=== PATIENT | male | born 1960 | race Caucasian/White ===

== ENCOUNTER 2023-04-02 05:14 | Inpatient (IN) | payer OTHER ==
[2023-03-28 15:15] LABS: BASOPHILS % (AUTO) 0.3 % (0-1); EOSINOPHILS # (AUTO) 0.2 X10'3 (0-0.9); EOSINOPHILS % (AUTO) 2.3 % (0-6); LYMPHOCYTES % (AUTO) 11.2 % (21-51); MEAN CORPUSCULAR HEMOGLOBIN 29.2 PG (27.0-31.0); MEAN CORPUSCULAR HGB CONC 33.9 g/dL (33.0-36.5); MEAN CORPUSCULAR VOLUME 86.2 FL (78-98); MEAN PLATELET VOLUME 7.6 FL (7.4-10.4); MONOCYTES # (AUTO) 0.8 X10'3 (0-0.9); MONOCYTES % (AUTO) 9.6 % (2-12); NEUTROPHILS # (AUTO) 6.6 X10'3 (1.8-7.7); NEUTROPHILS % (AUTO) 76.6 % (42-75); PRE OP HEMATOCRIT 45.7 % (42.0-52.0); PRE OP HEMOGLOBIN 15.5 g/dL (14.0-17.9); PRE OP PLATELET COUNT 236 X10'3 (140-440); PRE OP WHITE BLOOD COUNT 8.6 10'3 (4.8-10.8); RED CELL DISTRIBUTION WIDTH 15.2 % (11.5-14.5)
[2023-03-28 15:31] LABS: ALBUMIN 3.7 G/DL (3.4-5.0); ALBUMIN/GLOBULIN RATIO 0.9 (1.1-1.5); ALKALINE PHOSPHATASE 80 IU/L (46-116); BLOOD UREA NITROGEN 18 MG/DL (7-18); BUN/CREATININE RATIO 15.5 (10.0-20.0); CALCIUM 9.5 MG/DL (8.5-10.1); CHLORIDE 101 MMOL/L (99-107); CREATININE 1.16 MG/DL (0.60-1.10); PRE OP ALT 32 U/L (30-65); PRE OP ANION GAP 10 (8-16); PRE OP AST 22 U/L (10-37); PRE OP GLUCOSE 182 MG/DL (70-104); PRE OP SODIUM 137 MMOL/L (135-145); TOTAL CARBON DIOXIDE 25.6 MMOL/L (24-32); TOTAL PROTEIN 7.6 G/DL (6.4-8.2); eGFR 63 ML/MIN
[2023-03-28 15:50] LABS: PRE OP POTASSIUM 3.3 MMOL/L (3.4-5.1)
[2023-04-02] VITALS (32 sets, daily range): BP systolic 11–151; BP diastolic 53–97; PULSE 60–78; RESP 10–19; TEMP 97.7–98.6; O2SAT 90–98
[~2023-04-02] VITALS: Ht 175.3 cm; Wt 131.0 kg
[~2023-04-02 05:14] MED LIST: ALOG25TA PO; ASPI-529 PO; ATOR-2 PO; CARV-50 PO; DULO-31 PO; EMPA25TA PO; FURO-150 PO; HYDR25TA4 PO; LISI-642 PO; PHEN1CPM PO; ringers solution, lacted 1,000 ML IV SCH
[2023-04-02] MEDS ORDERED: DOCUMENT DATE & TIME OF BETA-BLOCKER PO ONE (05:30)
[2023-04-02] MEDS ORDERED: vancomycin 1,500 MG in NS 300ml IV soln IV ONE (05:30)
[2023-04-02] MEDS ORDERED: ceFAZolin inj. 3,000 MG in normal saline 100ml IV soln 100 ML IV ONE (05:30)
[2023-04-02] MEDS ORDERED: famotidine 20mg tablet PO ONE (05:30)
[2023-04-02] MEDS ORDERED: tranexamic acid 650mg tablet PO ONE (05:30)
--- NOTE | 2023-04-02 06:25 | NUR ---
PATIENT WATCHED VIDEO, PULSES MARKED, NO OINTMENT ORDERED, CSM INTACT. REQUESTED EARLY ROOM FOR PATIENT AFTER SURGERY BUT WAS TOLD ROOMS ARE FULL ALREADY.
[2023-04-02] MEDS ORDERED: ROPIVAcaine 0.5% (5mg/ml) 30ml vial ONE ×3 (06:46→08:24)
[2023-04-02] MEDS ORDERED: fentaNYL/PF 50MCG/1 ML 2ML syringe ONE (07:17)
[2023-04-02] MEDS ORDERED: MIDAZolam 1mg/ml 10ml vial ONE (07:17)
[2023-04-02] MEDS ORDERED: propofol inj 20 ML IV ONE ×2 (07:21)
[2023-04-02] MEDS ORDERED: fentaNYL/PF 50MCG/1 ML 2ML syringe IV PRN ×2 (08:10)
[2023-04-02] MEDS ORDERED: labetalol 20mg/4ml (5mg/ml) syringe IV PRN (08:10)
[2023-04-02] MEDS ORDERED: morphine 4 MG/ML inj SYRINge IV PRN (08:10)
[2023-04-02] MEDS ORDERED: ringers solution, lacted 1,000 ML IV SCH (08:10)
[2023-04-02] MEDS ORDERED: ondansetron/PF 4mg/2ml inj IV PRN ×2 (08:10→09:25)
[2023-04-02] MEDS ORDERED: morphine 2 MG/ML inj. syringe IV PRN (08:10)
[2023-04-02] MEDS ORDERED: hydrALAZINE 20mg/ml inj. IV PRN (08:10)
[2023-04-02] MEDS ORDERED: dexmedetomidine 200mcg/2ml inj. IV ONE (08:20)
[2023-04-02] MEDS ORDERED: tetracaine 1% (10mg/ml) pres. free inj. ONE (08:20)
[2023-04-02] MEDS ORDERED: ePHEDrine 50MG/ML INJ. ONE (08:30)
[2023-04-02] MEDS ORDERED: oxyCODONE IR 5mg (immed. release) tablet PO PRN ×2 (09:25)
[2023-04-02] MEDS ORDERED: acetaminophen 325mg tablet PO PRN (09:25)
[2023-04-02] MEDS ORDERED: HYDROmorphone inj. 0.5 MG/0.5 ML DISP.SYRIN IV PRN (09:25)
[2023-04-02] MEDS ORDERED: bisacodyl 10mg suppository rectal RC PRN (09:25)
[2023-04-02] MEDS ORDERED: HYDROmorphone 1 mg/ml syringe IV PRN (09:25)
[2023-04-02] MEDS ORDERED: diphenhydrAMINE 25mg capsule PO PRN ×2 (09:25)
[2023-04-02] MEDS ORDERED: naloxone 0.4 mg/ml inj IV PRN (09:25)
[2023-04-02] MEDS ORDERED: magnesium hydroxide 30ml (MOM) UD suspension PO PRN (09:25)
--- NOTE | 2023-04-02 09:26 | NUR ---
Received from OR via hospital bed to RR 7, accompanied by Anesthesiologist Dr Burgos and report given by Anesthesiologist. PATIENT A&OX4, DENIES PAIN, V/S WNL, SCD ON , PIV 20G L wirst, DRESSING knee WRAP TO RIGHT SIDE CDI AND COLD POWDER PACK applied. bilateral pedal pulses palpable. Will continue to assess
--- NOTE | 2023-04-02 10:26 | NUR ---
PT IS A/OX4 AND DOES NOT C/O PAIN OR NAUSEA. STILL NOT ABLE TO FEEL BILAT LE
--- NOTE | 2023-04-02 12:05 | NUR ---
RECEIVED PT AND REPORT FROM CAREER BASED INTERVENTION COORDINATOR, RUIZ, PT NOW STARTING TO MOVE LEGS, DENIES PAIN OR NAUSEA, WAITING FOR PT'S LUNCH TRAY TO ARRIVE. PT'S AT BEDSIDE. WILL CONTINUE TO MONITOR.
--- NOTE | 2023-04-02 12:10 | NUR ---
PATIENT TRANSFERRED TO [facility] ROOM 244. GAVE REPORT TO DANIEL RAYMUNDO TO RESUME CARE OF PATIENT. NO C/O PAIN OR NAUSEA. RIGHT TKA DRESSING, CDI. WRAP AND POWDER PACK IN PLACE. BILATERAL PEDAL PULSES PALPABLE AND PATIENT IS ABLE TO MOVE ALL 4 EXTREMITIES. STILL DECREASED SENSATION BLE.
--- NOTE | 2023-04-02 14:30 | NUR ---
GOT REPORT FROM DANIEL RAYMUNDO. PATIENT IS MOVED BACK TO RR 8, STILL PENDING ORTHO ROOM FOR ADMIT. PT PRESENTS ON RA, VSS. PT RECEIVED PAIN MEDS AT 1340 AND STILL C/O PAIN 4/10 TO RIGHT LEG AND WOULD LIKE PAIN MEDS BUT REFUSES MORPHINE. HE IS SITTING U PIN BED AND THERE ARE NO S/S OF DISTRESS. PT IS ABLE TO MOVE HIS TOES AND IS STARTING REGAIN FEELING. WILL CONTINUE TO ASSESS.
[2023-04-02] MEDS: acetaminophen 325mg tablet PO SCH ×2 (14:57→21:37)
--- NOTE | 2023-04-02 15:09 | NUR ---
PATIENT DANGLING AT THE EDGE OF THE BED. WILL CONTINUE TO ASSESS
[2023-04-02] MEDS: ceFAZolin/D5W- 1GM premix 50 ML IV SCH (15:22)
[2023-04-02] MEDS: potassium cl 20mEq in 1/2 NS 1,000 ML IV SCH (15:22)
[2023-04-02] MEDS: HYDROcodone/acetaminophen 10/325mg tab PO PRN ×2 (16:36→21:59)
--- NOTE | 2023-04-02 17:46 | NUR ---
PATIENT STABLE FOR TRANSFER PER MD ORDERS. REPORT GIVEN TO NURSE CUNNINGHAM, ALL QUESTIONS, COMMENTS, AND CONCERNS WERE ANSWERED AT THIS TIME. ALL PERSONAL BELONGINGS WERE SENT UP WITH PATIENT AND PATIENT IS AWARE OF ROOM NUMBER. PATIENT HOOKED UP TO POST OP VITALS AND CALL LIGHT WITHIN REACH, BLL. RIGHT LEG ELEVATED WITH ICE APPLIED. PRIMARY NURSE AWARE OF TRANSFER - CARE HAS BEEN TRANSFERRED TO NURSE COON.
--- NOTE | 2023-04-02 18:30 | NUR ---
Patient in room ORTHO 4021. I have received report from DANIEL COON and had the opportunity to ask questions and assume patient care.
[2023-04-02] MEDS ORDERED: vancomycin/NS 1 GM ADD-VANTAGE 250 ML IV SCH (20:00)
[2023-04-02] MEDS: sennosides 8.6mg tablet PO SCH (21:35)
[2023-04-02] MEDS: atorvastatin 20mg tablet PO SCH (21:35)
[2023-04-02] MEDS: carVEDilol 12.5mg tablet PO SCH (21:37)
[2023-04-03] MEDS: ceFAZolin/D5W- 1GM premix 50 ML IV SCH (00:10)
[2023-04-03] MEDS: potassium cl 20mEq in 1/2 NS 1,000 ML IV SCH ×3 (01:25→09:25)
[2023-04-03] MEDS: acetaminophen 325mg tablet PO SCH ×4 (01:53→23:13)
[2023-04-03 06:00] VITALS: BP 146/81; PULSE 86; RESP 19; TEMP 97.8; O2SAT 96
--- NOTE | 2023-04-03 06:25 | NUR ---
Problems reprioritized. Patient report given, questions answered & plan of care reviewed with DANIEL Kay.
[2023-04-03 06:54] LABS: BASOPHILS % (AUTO) 0.2 % (0-1); EOSINOPHILS % (AUTO) 0.4 % (0-6); HEMATOCRIT 39.5 % (42.0-52.0); HEMOGLOBIN 13.5 g/dl (14.0-17.9); LYMPHOCYTES # (AUTO) 0.6 X10'3 (1.1-4.8); LYMPHOCYTES % (AUTO) 5.9 % (21-51); MEAN CORPUSCULAR HEMOGLOBIN 29.6 PG (27.0-31.0); MEAN CORPUSCULAR HGB CONC 34.1 g/dL (33.0-36.5); MEAN CORPUSCULAR VOLUME 86.9 FL (78-98); MEAN PLATELET VOLUME 8.3 FL (7.4-10.4); MONOCYTES # (AUTO) 1.1 X10'3 (0-0.9); MONOCYTES % (AUTO) 11.1 % (2-12); NEUTROPHILS # (AUTO) 8.3 X10'3 (1.8-7.7); NEUTROPHILS % (AUTO) 82.4 % (42-75); PLATELET COUNT 124 X10'3 (140-440); RED BLOOD COUNT 4.55 X10'6 (4.70-6.10); RED CELL DISTRIBUTION WIDTH 14.8 % (11.5-14.5); WHITE BLOOD COUNT 10.1 X10'3 (4.5-11.0)
[2023-04-03 07:07] LABS: ANION GAP 9 (8-16); CHLORIDE 102 MMOL/L (99-107); POTASSIUM 3.9 MMOL/L (3.5-5.1); SODIUM 133 MMOL/L (135-145); TOTAL CARBON DIOXIDE 21.9 MMOL/L (24-32)
[2023-04-03] MEDS: TOPIRAMATE PO SCH (08:00)
[2023-04-03] MEDS: PHENTERMINE PO SCH (08:00)
[2023-04-03] MEDS ORDERED: non-formulary drug (Aspirin (Baby Aspirin) 1 TAB) PO SCH (08:00)
[2023-04-03] MEDS: HYDROcodone/acetaminophen 10/325mg tab PO PRN ×3 (08:47→17:59)
[2023-04-03] MEDS: aspirin 325mg tablet PO SCH (08:48)
[2023-04-03] MEDS: HYDROchlorothiazide 12.5mg capsule PO SCH (08:48)
[2023-04-03] MEDS: EMPAGLIFLOZIN 25 MG TABLET PO SCH (08:48)
[2023-04-03] MEDS: duloxetine 30mg CAPSULE.DR PO SCH (08:48)
[2023-04-03] MEDS: furosemide 20MG tablet PO SCH (08:48)
[2023-04-03] MEDS: linagliptin 5mg tablet PO SCH (08:49)
[2023-04-03] MEDS: carVEDilol 12.5mg tablet PO SCH ×2 (08:50→20:14)
[2023-04-03] MEDS: lisinopril 5mg tablet PO SCH (08:53)
--- NOTE | 2023-04-03 09:25 | NUR ---
[facility] d/c at 0915 this morning without difficulty. 250ml yellow urine in drainage bag
[2023-04-03 11:00] VITALS: BP 127/80; PULSE 84; RESP 16; TEMP 99.3; O2SAT 96
--- NOTE | 2023-04-03 14:31 | NUR ---
Joint surgery consult: Pt s/p knee surgery per EMR. RD attempted to see pt at bedside however pt was busy with RN at the time of visit. Due to short staffing placed high protein nutrition education handout in pt's chart with RD contact information. Will remain available to answer any nutrition questions or concerns. Addendum: 04/03/23 at [address] Amended: Links added.
[2023-04-03] MEDS: ketorolac tromethamine 15mg/ml inj. IV SCH ×2 (14:41→20:15)
[2023-04-03 18:00] VITALS: BP 108/53; PULSE 75; RESP 14; TEMP 98; O2SAT 95
[2023-04-03] MEDS: sennosides 8.6mg tablet PO SCH (20:14)
[2023-04-03] MEDS: atorvastatin 20mg tablet PO SCH (20:14)
[2023-04-03 22:00] VITALS: BP 103/60; PULSE 76; RESP 15; TEMP 98.4; O2SAT 94
[2023-04-04] MEDS: acetaminophen 325mg tablet PO SCH ×2 (04:58→07:53)
--- NOTE | 2023-04-04 06:25 | NUR ---
Problems reprioritized. Patient report given, questions answered & plan of care reviewed with DANIEL MENDIETA.
--- NOTE | 2023-04-04 06:34 | NUR ---
Reported to DANIEL Boykin and not to Desi
[2023-04-04 06:38] LABS: BASOPHILS % (AUTO) 0.2 % (0-1); EOSINOPHILS # (AUTO) 0.1 X10'3 (0-0.9); EOSINOPHILS % (AUTO) 1.2 % (0-6); HEMATOCRIT 33.1 % (42.0-52.0); HEMOGLOBIN 11.4 g/dl (14.0-17.9); LYMPHOCYTES # (AUTO) 0.7 X10'3 (1.1-4.8); LYMPHOCYTES % (AUTO) 6.9 % (21-51); MEAN CORPUSCULAR HEMOGLOBIN 29.6 PG (27.0-31.0); MEAN CORPUSCULAR HGB CONC 34.4 g/dL (33.0-36.5); MEAN CORPUSCULAR VOLUME 86.2 FL (78-98); MEAN PLATELET VOLUME 7.6 FL (7.4-10.4); MONOCYTES # (AUTO) 1.3 X10'3 (0-0.9); MONOCYTES % (AUTO) 13.2 % (2-12); NEUTROPHILS % (AUTO) 78.5 % (42-75); PLATELET COUNT 199 X10'3 (140-440); RED BLOOD COUNT 3.84 X10'6 (4.70-6.10); RED CELL DISTRIBUTION WIDTH 14.3 % (11.5-14.5); WHITE BLOOD COUNT 10.2 X10'3 (4.5-11.0)
[2023-04-04] MEDS: PHENTERMINE PO SCH (08:00)
[2023-04-04] MEDS: TOPIRAMATE PO SCH (08:00)
[2023-04-04] MEDS: duloxetine 30mg CAPSULE.DR PO SCH (08:04)
[2023-04-04] MEDS: furosemide 20MG tablet PO SCH (08:04)
[2023-04-04] MEDS: carVEDilol 12.5mg tablet PO SCH ×2 (08:04→20:15)
[2023-04-04] MEDS: HYDROchlorothiazide 12.5mg capsule PO SCH (08:04)
[2023-04-04] MEDS: linagliptin 5mg tablet PO SCH (08:04)
[2023-04-04] MEDS: lisinopril 5mg tablet PO SCH (08:05)
[2023-04-04] MEDS: EMPAGLIFLOZIN 25 MG TABLET PO SCH (08:05)
[2023-04-04] MEDS: HYDROcodone/acetaminophen 10/325mg tab PO PRN ×2 (08:43→20:21)
[2023-04-04] MEDS ORDERED: acetaminophen 325mg tablet PO PRN (09:25)
[2023-04-04] MEDS: aspirin 325mg tablet PO SCH (09:29)
[2023-04-04 10:00] VITALS: BP 104/56; PULSE 85; RESP 20; TEMP 97.1; O2SAT 98
--- NOTE | 2023-04-04 15:35 | NUR ---
CHIEF SECURITY AND SAFETY OFFICER documentation: I have reviewed and agree with all interventions, assessments performed and documented by Ashutosh Beal LVN .
[2023-04-04 18:00] VITALS: BP 103/64; PULSE 99; RESP 18; TEMP 97.6; O2SAT 95
--- NOTE | 2023-04-04 18:16 | NUR ---
Problems reprioritized. Patient report given, questions answered & plan of care reviewed with LONA Vargas.
[2023-04-04] MEDS: atorvastatin 20mg tablet PO SCH (20:14)
[2023-04-04] MEDS: sennosides 8.6mg tablet PO SCH (20:17)
--- NOTE | 2023-04-04 21:42 | NUR ---
Patent ate [employer] with family. Addendum: 04/04/23 at 2143 by Sam Alonso LVN Amended: Links added.
[2023-04-04 22:00] VITALS: BP 108/59; PULSE 87; RESP 16; TEMP 98.1; O2SAT 94
--- NOTE | 2023-04-05 05:25 | NUR ---
LONA documentation: I have reviewed and agree with all interventions, assessments performed and documented by GABRIELA ZAMORANO. Addendum: 04/05/23 at 0525 by Luzma Laird RN Amended: Links added.
[2023-04-05 06:00] VITALS: BP 124/76; PULSE 88; RESP 17; TEMP 98.6; O2SAT 98
[2023-04-05 06:13] LABS: BASOPHILS % (AUTO) 0.4 % (0-1); EOSINOPHILS # (AUTO) 0.1 X10'3 (0-0.9); EOSINOPHILS % (AUTO) 0.9 % (0-6); HEMATOCRIT 29.3 % (42.0-52.0); HEMOGLOBIN 10.2 g/dl (14.0-17.9); LYMPHOCYTES # (AUTO) 0.8 X10'3 (1.1-4.8); LYMPHOCYTES % (AUTO) 7.6 % (21-51); MEAN CORPUSCULAR HEMOGLOBIN 30.1 PG (27.0-31.0); MEAN CORPUSCULAR HGB CONC 34.9 g/dL (33.0-36.5); MEAN PLATELET VOLUME 7.5 FL (7.4-10.4); MONOCYTES % (AUTO) 9.7 % (2-12); NEUTROPHILS # (AUTO) 8.4 X10'3 (1.8-7.7); NEUTROPHILS % (AUTO) 81.4 % (42-75); PLATELET COUNT 209 X10'3 (140-440); RED CELL DISTRIBUTION WIDTH 14.5 % (11.5-14.5); WHITE BLOOD COUNT 10.4 X10'3 (4.5-11.0)
--- NOTE | 2023-04-05 06:16 | NUR ---
Problems reprioritized. Patient report given, questions answered & plan of care reviewed with
--- NOTE | 2023-04-05 06:20 | NUR ---
Patient in room ORTHO 4021. I have received report from DANIEL Segal & LONA Vargas and had the opportunity to ask questions and assume patient care.
[2023-04-05 06:41] LABS: ALANINE AMINOTRANSFERASE 17 U/L (12-78); ALBUMIN 2.7 G/DL (3.4-5.0); ALBUMIN/GLOBULIN RATIO 0.7 (1.1-1.5); ALKALINE PHOSPHATASE 53 IU/L (46-116); ANION GAP 4 (8-16); ASPARTATE AMINO TRANSFERASE 23 U/L (10-37); BILIRUBIN,TOTAL 2.3 MG/DL (0.1-1.0); BLOOD UREA NITROGEN 19 MG/DL (7-18); BUN/CREATININE RATIO 23.5 (10.0-20.0); CALCIUM 9.2 MG/DL (8.5-10.1); CHLORIDE 101 MMOL/L (99-107); CREATININE 0.81 MG/DL (0.60-1.10); GLUCOSE 111 MG/DL (70-104); POTASSIUM 3.5 MMOL/L (3.5-5.1); SODIUM 137 MMOL/L (135-145); TOTAL CARBON DIOXIDE 31.8 MMOL/L (24-32); TOTAL PROTEIN 6.4 G/DL (6.4-8.2); eCRCL 92 ML/MIN; eGFR > 90 ML/MIN
[2023-04-05] MEDS: HYDROchlorothiazide 12.5mg capsule PO SCH (07:48)
[2023-04-05] MEDS: aspirin 325mg tablet PO SCH (07:49)
[2023-04-05] MEDS: linagliptin 5mg tablet PO SCH (07:49)
[2023-04-05] MEDS: carVEDilol 12.5mg tablet PO SCH ×2 (07:49→20:46)
[2023-04-05] MEDS: furosemide 20MG tablet PO SCH (07:49)
[2023-04-05] MEDS: duloxetine 30mg CAPSULE.DR PO SCH (07:49)
[2023-04-05] MEDS: EMPAGLIFLOZIN 25 MG TABLET PO SCH (07:49)
[2023-04-05] MEDS: HYDROcodone/acetaminophen 10/325mg tab PO PRN ×2 (07:49→20:46)
[2023-04-05] MEDS: TOPIRAMATE PO SCH (07:53)
[2023-04-05] MEDS: PHENTERMINE PO SCH (07:53)
[2023-04-05 10:00] VITALS: BP 91/61; PULSE 85; RESP 18; TEMP 97.3; O2SAT 95
--- NOTE | 2023-04-05 17:30 | NUR ---
SENIOR LEAD SOFTWARE ENGINEER documentation: I have reviewed and agree with all interventions, assessments performed and documented by Ashutosh Beal LVN.
[2023-04-05 18:00] VITALS: BP 137/82; PULSE 83; RESP 18; TEMP 98; O2SAT 98
--- NOTE | 2023-04-05 18:36 | NUR ---
6Problems reprioritized. Patient report given, questions answered & plan of care reviewed with DANIEL Segal.
[2023-04-05] MEDS: atorvastatin 20mg tablet PO SCH (20:46)
[2023-04-05] MEDS: sennosides 8.6mg tablet PO SCH (20:46)
[2023-04-05 23:00] VITALS: BP 124/69; PULSE 80; RESP 19; TEMP 96.6; O2SAT 94
[2023-04-06 06:00] VITALS: BP 139/74; PULSE 68; RESP 18; TEMP 98.2; O2SAT 98
--- NOTE | 2023-04-06 06:30 | NUR ---
Patient in room ORTHO 4021. I have received report from DANIEL Segal and had the opportunity to ask questions and assume patient care.
[2023-04-06 07:00] VITALS: RESP 18; O2SAT 98
[2023-04-06 07:17] LABS: BASOPHILS % (AUTO) 0.4 % (0-1); EOSINOPHILS # (AUTO) 0.1 X10'3 (0-0.9); HEMATOCRIT 32.2 % (42.0-52.0); HEMOGLOBIN 10.9 g/dl (14.0-17.9); LYMPHOCYTES # (AUTO) 0.8 X10'3 (1.1-4.8); LYMPHOCYTES % (AUTO) 7.2 % (21-51); MEAN CORPUSCULAR HEMOGLOBIN 29.2 PG (27.0-31.0); MEAN CORPUSCULAR HGB CONC 33.8 g/dL (33.0-36.5); MEAN CORPUSCULAR VOLUME 86.4 FL (78-98); MEAN PLATELET VOLUME 7.7 FL (7.4-10.4); MONOCYTES % (AUTO) 8.3 % (2-12); NEUTROPHILS # (AUTO) 9.6 X10'3 (1.8-7.7); NEUTROPHILS % (AUTO) 83.1 % (42-75); PLATELET COUNT 307 X10'3 (140-440); RED BLOOD COUNT 3.73 X10'6 (4.70-6.10); RED CELL DISTRIBUTION WIDTH 14.5 % (11.5-14.5); WHITE BLOOD COUNT 11.5 X10'3 (4.5-11.0)
[2023-04-06 07:45] LABS: ALANINE AMINOTRANSFERASE 21 U/L (12-78); ALBUMIN/GLOBULIN RATIO 0.7 (1.1-1.5); ALKALINE PHOSPHATASE 65 IU/L (46-116); ANION GAP 9 (8-16); ASPARTATE AMINO TRANSFERASE 29 U/L (10-37); BILIRUBIN,TOTAL 3.3 MG/DL (0.1-1.0); BLOOD UREA NITROGEN 19 MG/DL (7-18); BUN/CREATININE RATIO 20.7 (10.0-20.0); CALCIUM 9.2 MG/DL (8.5-10.1); CHLORIDE 99 MMOL/L (99-107); CREATININE 0.92 MG/DL (0.60-1.10); GLUCOSE 121 MG/DL (70-104); POTASSIUM 3.1 MMOL/L (3.5-5.1); SODIUM 138 MMOL/L (135-145); TOTAL CARBON DIOXIDE 29.9 MMOL/L (24-32); TOTAL PROTEIN 7.1 G/DL (6.4-8.2); eCRCL 81 ML/MIN; eGFR 83 ML/MIN
[2023-04-06] MEDS: EMPAGLIFLOZIN 25 MG TABLET PO SCH (07:46)
[2023-04-06] MEDS: duloxetine 30mg CAPSULE.DR PO SCH (07:46)
[2023-04-06] MEDS: HYDROchlorothiazide 12.5mg capsule PO SCH (07:47)
[2023-04-06] MEDS: carVEDilol 12.5mg tablet PO SCH (07:47)
[2023-04-06] MEDS: furosemide 20MG tablet PO SCH (07:47)
[2023-04-06] MEDS: aspirin 325mg tablet PO SCH (07:47)
[2023-04-06] MEDS: HYDROcodone/acetaminophen 10/325mg tab PO PRN (07:47)
[2023-04-06] MEDS: linagliptin 5mg tablet PO SCH (07:47)
[2023-04-06] MEDS: TOPIRAMATE PO SCH (07:50)
[2023-04-06] MEDS: PHENTERMINE PO SCH (07:50)
[2023-04-06 08:47] VITALS: RESP 16
--- NOTE | 2023-04-06 13:03 | NUR ---
ASSEMBLER ARRANGER documentation: I have reviewed and agree with all interventions, assessments performed and documented by Ashutosh Beal LVN.
--- NOTE | 2023-04-06 13:08 | NUR ---
Pt stable for transfer to [facility]. Report called in to accepting facility. Patients spouse was present at the time of d/c. All personal belongings were packed and taken by spouse to [facility]. Patient left with the assistance of [facility] personnel and was transported in [facility] to [facility]. D/c at 1200.
== END 2023-04-06 12:00 | DRG 470 ==
LOC: PAS 05:14 → EDBD 08:45 → ORTHO 4S 18:22
PROVIDERS: ADMIT Orthopaedic Surgery; ATTEND Orthopaedic Surgery
PROC: 8E0YXBZ Computer Assisted Procedure of Lower Extremity (ICD-10-PCS; 2023-04-02)
PROC: 8E0Y0CZ Robotic Assisted Procedure of Lower Extremity, Open Approach (ICD-10-PCS; 2023-04-02)
PROC: 3E0T3BZ Introduction of Anesthetic Agent into Peripheral Nerves and Plexi, Percutaneous Approach (ICD-10-PCS; 2023-04-02)
PROC: 0SRD0J9 Replacement of Left Knee Joint with Synthetic Substitute, Cemented, Open Approach (ICD-10-PCS; principal; 2023-04-02 07:25)
DX: M17.12 Unilateral primary osteoarthritis, left knee (principal); Z68.41 Body mass index [BMI] 40.0-44.9, adult; M19.011 Primary osteoarthritis, right shoulder; G57.02 Lesion of sciatic nerve, left lower limb; Z96.619 Presence of unspecified artificial shoulder joint; I10 Essential (primary) hypertension; F43.10 Post-traumatic stress disorder, unspecified; E11.9 Type 2 diabetes mellitus without complications; E66.01 Morbid (severe) obesity due to excess calories; M21.162 Varus deformity, not elsewhere classified, left knee; S80.222A Blister (nonthermal), left knee, initial encounter; X58.XXXA Exposure to other specified factors, initial encounter; Y92.238 Other place in hospital as the place of occurrence of the external cause; Y93.89 Activity, other specified; Y99.8 Other external cause status; Z88.8 Allergy status to other drugs, medicaments and biological substances
CPT/HCPCS: 36415; 80051; 80053; 82948; 83036; 85025; 87081; 93005; 97110; 97116; 97161; 97530; A4215; A4615; A6209; A6253; A6258; A6446; A6449; A7000; C1713; C1758; C1776; G0378; J0690; J1170; J1885; J2250; J2704; J2795; J3010; J3370; J3480; J3490; J7120

== ENCOUNTER 2023-04-13 21:27 | Emergency (ER) | payer OTHER, MEDICARE ==
[~2023-04-13] VITALS: Ht 177.8 cm; Wt 128.2 kg
[~2023-04-13 21:27] MED LIST changes: -ringers solution, lacted 1,000 ML IV SCH
[2023-04-14 00:43] LABS: EOSINOPHILS # (AUTO) 0.2 X10'3 (0-0.9); MEAN CORPUSCULAR HEMOGLOBIN 30.1 PG (27.0-31.0); MEAN PLATELET VOLUME 6.9 FL (7.4-10.4); RED CELL DISTRIBUTION WIDTH 15.2 % (11.5-14.5)
[2023-04-14 00:44] LABS: BASOPHILS % (AUTO) 0.5 % (0-1); EOSINOPHILS % (AUTO) 1.7 % (0-6); HEMATOCRIT 34.9 % (42.0-52.0); HEMOGLOBIN 11.9 g/dl (14.0-17.9); LYMPHOCYTES # (AUTO) 0.5 X10'3 (1.1-4.8); LYMPHOCYTES % (AUTO) 4.8 % (21-51); MEAN CORPUSCULAR HGB CONC 34.3 g/dL (33.0-36.5); MONOCYTES % (AUTO) 10.5 % (2-12); NEUTROPHILS # (AUTO) 7.8 X10'3 (1.8-7.7); NEUTROPHILS % (AUTO) 82.5 % (42-75); PLATELET COUNT 351 X10'3 (140-440); RED BLOOD COUNT 3.96 X10'6 (4.70-6.10); WHITE BLOOD COUNT 9.5 X10'3 (4.5-11.0)
[2023-04-14 00:53] LABS: ALANINE AMINOTRANSFERASE 31 U/L (12-78); ALBUMIN 3.1 G/DL (3.4-5.0); ALKALINE PHOSPHATASE 80 IU/L (46-116); ANION GAP 5 (8-16); ASPARTATE AMINO TRANSFERASE 35 U/L (10-37); BILIRUBIN,TOTAL 3.4 MG/DL (0.1-1.0); BLOOD UREA NITROGEN 14 MG/DL (7-18); BUN/CREATININE RATIO 14.7 (10.0-20.0); CALCIUM 9.2 MG/DL (8.5-10.1); CHLORIDE 100 MMOL/L (99-107); CREATININE 0.95 MG/DL (0.60-1.10); POTASSIUM 3.8 MMOL/L (3.5-5.1); SODIUM 135 MMOL/L (135-145); TOTAL CARBON DIOXIDE 30.1 MMOL/L (24-32); URIC ACID 3.7 MG/DL (3.5-7.2); eCRCL 81 ML/MIN; eGFR 80 ML/MIN
[2023-04-14 00:57] LABS: ALBUMIN/GLOBULIN RATIO 0.8 (1.1-1.5); GLUCOSE 131 MG/DL (70-104); TOTAL PROTEIN 7.2 G/DL (6.4-8.2)
[2023-04-14 01:15] VITALS: BP 119/57; PULSE 87; RESP 16; O2SAT 98
[2023-04-14] MEDS ORDERED: CEPH-585 PO (01:52)
[2023-04-14] MEDS ORDERED: cephalexin 250mg capsule PO ONE (01:55)
--- NOTE | 2023-04-14 02:16 | NUR ---
New dressing aplpied to surgical incision. Abd pad placed on wound and secured with gauze roll and piper bandage.
[2023-04-14 02:56] VITALS: TEMP 98.2
--- NOTE | 2023-04-14 03:12 | NUR ---
Called [facility] and gave report to Carloz SANCHEZ. Notified Carloz of lab and radiology results with diagnosis of cellulitis. Notified Carloz the patient was discharged with prescirption for antibiotics and to follow up with surgeon. Carloz verbalized understanding.
== END 2023-04-14 03:00 | disposition home or self-care (01) ==
LOC: ER 21:27
DX: L03.115 Cellulitis of right lower limb (principal); Z79.899 Other long term (current) drug therapy
CPT/HCPCS: 73600; 80053; 84145; 84550; 85025; 93971; 99285; A6253; A6446; A6449

== ENCOUNTER 2023-10-28 07:24 | Inpatient (IN) | payer OTHER, MEDICARE ==
[~2023-10-28] VITALS: Ht 175.3 cm; Wt 131.0 kg
[2023-10-28] VITALS (25 sets, daily range): BP systolic 100–145; BP diastolic 51–97; PULSE 60–82; RESP 12–20; TEMP 97.6–98; O2SAT 93–98
[2023-10-28] MEDS: DOCUMENT DATE & TIME OF BETA-BLOCKER PO ONE (07:00)
[~2023-10-28 07:24] MED LIST changes: -ASPI-529 PO; +ASPI-611 PO; -ATOR-2 PO; +ATOR80TA PO; -CARV-50 PO; +CARV25TA2 PO; -LISI-642 PO; +LISI20TA28 PO; -PHEN1CPM PO; +vancomycin/NS 1 GM in NS 250 ML IV ONE
[2023-10-28] MEDS: aspirin 325mg tablet PO SCH (08:30)
[2023-10-28] MEDS: famotidine 20mg tablet PO ONE (09:20)
[2023-10-28] MEDS: ringers solution, lacted 1,000 ML IV SCH (09:21)
[2023-10-28] MEDS: tranexamic acid 650mg tablet PO ONE (09:21)
[2023-10-28] MEDS: cefazolin 2gm/D5W 100mL 100 ML IV ONE (09:22)
[2023-10-28] MEDS: vancomycin 1,500 MG in NS 300ml IV soln IV ONE (09:44)
[2023-10-28] MEDS: BUPIVACAINE/MELOXICAM 14 ML VIAL IL ONE ×2 (10:15→11:44)
[2023-10-28] MEDS ORDERED: fentaNYL/PF 50MCG/1 ML 2ML syringe ONE (10:31)
[2023-10-28] MEDS ORDERED: MIDAZolam 1mg/ml 10ml vial ONE (10:31)
[2023-10-28] MEDS ORDERED: ROPIVAcaine 0.5% (5mg/ml) 30ml vial ONE (11:31)
[2023-10-28] MEDS ORDERED: BUPIVAcaine/PF 7.5mg/ml (0.75%) 10ml vial ONE (11:31)
[2023-10-28] MEDS ORDERED: ceFAZolin 1000mg inj ONE (11:33)
[2023-10-28] MEDS ORDERED: labetalol 20mg/4ml (5mg/ml) syringe IV PRN (12:25)
[2023-10-28] MEDS ORDERED: enalaprilat dihydrate 2.5mg/2ml vial IV PRN (12:25)
[2023-10-28] MEDS ORDERED: ondansetron/PF 4mg/2ml inj IV PRN ×2 (12:25→13:20)
[2023-10-28] MEDS ORDERED: morphine 2 MG/ML inj. syringe IV PRN (12:25)
[2023-10-28] MEDS ORDERED: meperidine/PF 25mg/ml syringe IV PRN ×3 (12:25)
[2023-10-28] MEDS ORDERED: proCHLORperazine 10 MG/2 ml inj IV PRN (12:25)
[2023-10-28] MEDS ORDERED: morphine 4 MG/ML inj SYRINge IV PRN (12:25)
[2023-10-28] MEDS ORDERED: ringers solution, lacted 1,000 ML IV SCH (12:25)
[2023-10-28] MEDS ORDERED: acetaminophen 325mg tablet PO PRN (13:20)
[2023-10-28] MEDS ORDERED: naloxone 0.4 mg/ml inj IV PRN (13:20)
[2023-10-28] MEDS ORDERED: diphenhydrAMINE 25mg capsule PO PRN ×2 (13:20)
[2023-10-28] MEDS ORDERED: HYDROmorphone 1 mg/ml syringe IV PRN (13:20)
[2023-10-28] MEDS ORDERED: bisacodyl 10mg suppository rectal RC PRN (13:20)
[2023-10-28] MEDS ORDERED: magnesium hydroxide 30ml (MOM) UD suspension PO PRN (13:20)
[2023-10-28] MEDS: acetaminophen 325mg tablet PO SCH (15:48)
[2023-10-28] MEDS: potassium cl 20mEq in 1/2 NS 1,000 ML IV SCH (15:49)
[2023-10-28] MEDS: ceFAZolin/D5W- 1GM premix 50 ML IV SCH (16:52)
[2023-10-28] MEDS: atorvastatin 20mg tablet PO SCH (20:27)
[2023-10-28] MEDS: carVEDilol 12.5mg tablet PO SCH (20:28)
[2023-10-28] MEDS: lisinopril 20mg tablet PO SCH (20:29)
[2023-10-28] MEDS: sennosides 8.6mg tablet PO SCH (20:29)
[2023-10-28] MEDS: vancomycin/NS 1 GM ADD-VANTAGE 250 ML IV SCH (23:27)
[2023-10-29 01:56] VITALS: BP 100/54; PULSE 73; RESP 18; TEMP 98.4; O2SAT 93
[2023-10-29] MEDS: HYDROmorphone inj. 0.5 MG/0.5 ML DISP.SYRIN IV PRN (05:49)
[2023-10-29 06:00] VITALS: BP 97/59; PULSE 60; RESP 20; TEMP 97.9; O2SAT 92
[2023-10-29] MEDS ORDERED: HYDROchlorothiazide 25mg tablet PO SCH ×2 (08:00→09:53)
[2023-10-29] MEDS: aspirin 81mg, enteric-coated 1 TAB TABLET.DR PO SCH (08:00)
[2023-10-29 08:56] LABS: BASOPHILS % (AUTO) 0 % (0-1); EOSINOPHILS % (AUTO) 0 % (0-6); HEMATOCRIT 40.8 % (42.0-52.0); HEMOGLOBIN 13.7 g/dl (14.0-17.9); LYMPHOCYTES # (AUTO) 0.6 X10'3 (1.1-4.8); LYMPHOCYTES % (AUTO) 3.3 % (21-51); MEAN CORPUSCULAR HEMOGLOBIN 29.7 PG (27.0-31.0); MEAN CORPUSCULAR HGB CONC 33.5 g/dL (33.0-36.5); MEAN CORPUSCULAR VOLUME 88.6 FL (78-98); MEAN PLATELET VOLUME 8.1 FL (7.4-10.4); MONOCYTES # (AUTO) 1.1 X10'3 (0-0.9); MONOCYTES % (AUTO) 6.1 % (2-12); NEUTROPHILS % (AUTO) 90.6 % (42-75); PLATELET COUNT 248 X10'3 (140-440); RED CELL DISTRIBUTION WIDTH 14.1 % (11.5-14.5); WHITE BLOOD COUNT 17.6 X10'3 (4.5-11.0)
[2023-10-29 09:18] LABS: ANION GAP 10 (8-16); CHLORIDE 102 MMOL/L (99-107); SODIUM 137 MMOL/L (135-145); TOTAL CARBON DIOXIDE 25.4 MMOL/L (24-32)
[2023-10-29] MEDS: EMPAGLIFLOZIN 25 MG TABLET PO SCH (09:22)
[2023-10-29] MEDS: linagliptin 5mg tablet PO SCH (09:22)
[2023-10-29] MEDS: furosemide 20MG tablet PO SCH (09:24)
[2023-10-29] MEDS: duloxetine 30mg CAPSULE.DR PO SCH (09:24)
[2023-10-29 10:00] VITALS: BP 103/45; PULSE 74; RESP 18; TEMP 97.8; O2SAT 97
[2023-10-29 18:00] VITALS: BP 115/65; PULSE 80; RESP 18; TEMP 97.3; O2SAT 96
[2023-10-29] MEDS: celeCOXIB 100mg capsule PO SCH (20:31)
[2023-10-29 22:00] VITALS: BP 107/64; PULSE 79; RESP 16; TEMP 97; O2SAT 97
[2023-10-29] MEDS: oxyCODONE IR 5mg (immed. release) tablet PO PRN (22:59)
[2023-10-30 07:01] VITALS: BP 125/60; PULSE 74; RESP 16; TEMP 97.8; O2SAT 94
[2023-10-30] MEDS: HYDROchlorothiazide 12.5mg capsule PO SCH (08:00)
[2023-10-30 08:17] LABS: HEMATOCRIT 34.6 % (42.0-52.0); HEMOGLOBIN 11.8 g/dl (14.0-17.9)
[2023-10-30 08:20] LABS: BASOPHILS % (AUTO) 0.3 % (0-1); EOSINOPHILS # (AUTO) 0.1 X10'3 (0-0.9); EOSINOPHILS % (AUTO) 0.7 % (0-6); LYMPHOCYTES # (AUTO) 0.9 X10'3 (1.1-4.8); LYMPHOCYTES % (AUTO) 7.6 % (21-51); MEAN CORPUSCULAR HEMOGLOBIN 30.1 PG (27.0-31.0); MEAN CORPUSCULAR HGB CONC 34.1 g/dL (33.0-36.5); MEAN CORPUSCULAR VOLUME 88.4 FL (78-98); MONOCYTES # (AUTO) 1.5 X10'3 (0-0.9); MONOCYTES % (AUTO) 13.4 % (2-12); PLATELET COUNT 215 X10'3 (140-440); RED BLOOD COUNT 3.91 X10'6 (4.70-6.10); RED CELL DISTRIBUTION WIDTH 14.5 % (11.5-14.5); WHITE BLOOD COUNT 11.6 X10'3 (4.5-11.0)
[2023-10-30] MEDS ORDERED: acetaminophen 325mg tablet PO PRN (08:25)
[2023-10-30] MEDS: oxyCODONE IR 5mg (immed. release) tablet PO PRN (09:21)
[2023-10-30 10:21] VITALS: RESP 16
== END 2023-10-30 11:45 | disposition home or self-care (01) | DRG 470 ==
LOC: PAS IN 07:24 → ORTHO 4S 15:31
PROVIDERS: ADMIT Orthopaedic Surgery; ATTEND Orthopaedic Surgery
PROC: 8E0Y0CZ Robotic Assisted Procedure of Lower Extremity, Open Approach (ICD-10-PCS; 2023-10-28)
PROC: 8E0YXBZ Computer Assisted Procedure of Lower Extremity (ICD-10-PCS; 2023-10-28)
PROC: 3E0T3BZ Introduction of Anesthetic Agent into Peripheral Nerves and Plexi, Percutaneous Approach (ICD-10-PCS; 2023-10-28)
PROC: 3E0T33Z Introduction of Anti-inflammatory into Peripheral Nerves and Plexi, Percutaneous Approach (ICD-10-PCS; 2023-10-28)
PROC: 0SRD0J9 Replacement of Left Knee Joint with Synthetic Substitute, Cemented, Open Approach (ICD-10-PCS; principal; 2023-10-28 10:38)
DX: M17.12 Unilateral primary osteoarthritis, left knee (principal); Z79.82 Long term (current) use of aspirin; Z79.899 Other long term (current) drug therapy; Z91.048 Other nonmedicinal substance allergy status
CPT/HCPCS: 36415; 80051; 82948; 85025; 93005; 97110; 97116; 97161; 97530; A4215; A4615; A6253; A6446; A6449; A7000; C1713; C1776; G0378; J0690; J1170; J2250; J2795; J3010; J3370; J3480; J3490; J7120